=== PATIENT | male | born 1990 | race Caucasian/White ===

== ENCOUNTER 2022-03-02 08:43 | Outpatient (CLI) | payer BC, SELFPAY ==
--- OUTSIDE RECORDS SUMMARY | 2022-03-02 09:05 | XMS_ITS | Clinical Summary ---
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 11/04/2015 Immunizations Name Administration Dates Next Due AMB Influenza, IIV3 (Age >=3 03/27/2008 years)(Flu Clinic Only) DTP 11/03/1997, 08/13/1995, 02/11/1993, 1992, 1992 HIB PRP-OMP (PedvaxHIB) 08/13/1995, 02/11/1993, 1992, 1992 Hepatitis A (Adult) 11/04/2010 Hepatitis B (Peds) 08/13/1995, 07/12/1993, 02/11/1993 Influenza, IIV3 (Age >=3 years) 03/16/2007 Influenza, IIV4 03/23/2018, 06/28/2016 MMR 01/06/2005, 01/06/2005, 08/13/1995 Meningococcal Vaccine (Menveo) 11/04/2010 Oral Polio Vaccine 11/03/1997, 08/13/1995, 1992, 1992 Td (Age >=7 Years) 01/06/2005 Td, Preservative Free (age >= 7 Years) 06/28/2016, 5 Tdap 01/06/2005 Family History Medical History Relation Name Comments Good Health Father Good Health Mother Relation Name Status Comments Father Alive Mother Alive Social History Tobacco Use Types Packs/Day Years Used Date Never Smoker Smokeless Tobacco: Never Used Tobacco Cessation: Counseling Given: Yes Alcohol Use Standard Drinks/Week Comments Yes 3 (1 standard drink = 0.6 oz pure alcoho l) 2-3x/week Alcohol Habits Answer Date Recorded How often do you have a drink containing alcohol? Not asked How many drinks containing alcohol do you have on a typical Not asked day when you are drinking? How often do you have six or more drinks on one occasion? No t asked Comment: 2-3x/week 07/29/2020 Sex Assigned at Date Recorded Not on file Obstetrics History Last Filed Vital Signs Vital Sign Reading Time Taken Comments Blood Pressure 118/70 09/27/2020 1:17 PM CDT Pulse 82 09/27/2020 1:17 PM CDT Temperature 36.9 ??C (98.5 ??F) 01/21/2018 10:28 AM CDT Respiratory Rate 18 07/29/2020 4:16 PM CDT Oxygen Saturation 97% 01/21/2018 10:28 AM CDT Inhaled Oxygen Concentration - - Weight 100.1 kg (220 lb 11.2 oz) 09/27/2020 1:17 PM CDT Height 177.8 cm (5' 10) 09/27/2020 1:17 PM CDT Body Mass Index 31.67 09/27/2020 1:17 PM CDT Plan of Treatment Health Maintenance Due Date Last Done Comments COVID-19 vaccine series (#1) 1990 Hepatitis C screening for age 0106/01/2010 18-79 BMI (ht and wt on same day) for 09/27/2021 09/27/2020, 03/2 09/2020, age 18+ 01/24/2018, Additional history exists Depression screening for age 12+ 10/05/2021 10/05/2020, , 09/06/2020, Additional history exists Influenza for age 9-49 01/05/2022 03/23/2018, 06/28/2016, 03/27/2008, Additional history exists Tetanus booster 06/28/2026 06/28/2016, 01/06/2005, 01/06/2005, Additional history exists Tdap Completed 01/06/2005 Results Not on filefrom Last 3 Months Insurance Payer Benefit Plan / Subscriber ID Effective Dates Phone Addre ss Type Group [employer] [id number] 2019-Present [address] [place] [address] [employer] [id number] 2013-Present [address] [place] [address] Jean Claude Peters Personal/Famil Self 1990 [address]) [place] [id number] Care Teams Designer/Writer Relationship Specialty Start Date End Date Ashish Shultz MD PCP - General 09/19/05 [address] [facility] [place] [id number]
[2022-03-02 12:02] LABS: Chloride* 102 mmol/L (96-114); Potassium* 4.5 mmol/L (3.6-5.1); Sodium* 139 mmol/L (135-149)
[2022-03-02 12:04] LABS: Bilirubin Total* 0.5 mg/dL (0.1-1.5); Carbon Dioxide* 28 mmol/L (20-32); Estimated Glomerular Filt Rate 104 ml/min
[2022-03-02 12:05] LABS: Alanine Aminotransferase* 31 U/L (4-50); Alkaline Phosphatase* 71 U/L (40-150); Aspartate Amino Transferase* 31 U/L (12-35); Blood Urea Nitrogen* 14 mg/dL (5-24); Calcium* 9.7 mg/dL (8.4-10.6); Glucose* 86 mg/dL (60-115); Total Protein* 7.7 g/dL (6.0-8.3)
== END 2022-03-02 08:44 | disposition home or self-care (01) ==
PROVIDERS: PCP Family Medicine; Visit Provider Family Medicine
DX: F41.9 Anxiety disorder, unspecified (principal); R53.83 Other fatigue
CPT/HCPCS: 80053; 84443

== ENCOUNTER 2022-09-01 10:48 | Outpatient (CLI) | payer BC, SELFPAY ==
--- NOTE | 2022-09-01 11:00 | CRLHL7_ITS ---
For Patients: As a result of the Century Cures Act, medical imaging exams and procedure reports are released immediately into your electronic medical record. You may view this report before your referring provider. If you have questions, please contact your health care provider. INDICATION: Sinusitis. Deviated septum. TECHNIQUE: Noncontrast CT images acquired through the paranasal sinuses. COMPARISON: None. FINDINGS: No air-fluid levels to suggest acute sinusitis. Moderate left and mild right circumferential maxillary sinus mucosal thickening. The ethmoid infundibula are opacified. Minimal mucosal thickening in the frontal recesses. The frontal sinuses are otherwise clear. Mild mucosal thickening in the ethmoid air cells. [id number] left and mild right sphenoid sinus mucosal thickening. The sphenoethmoidal recesses are opacified. There is 5 mm rightward nasal septal deviation and 3 mm rightward directed septal spur contacting the right inferior nasal turbinate. No nasal cavity masses. The mastoid air cells are clear. IMPRESSION: 1. Moderate left and mild right circumferential maxillary sinus mucosal thickening. The ethmoid infundibula are opacified. No air-fluid levels to suggest acute sinusitis. 2. Rightward nasal septal deviation with rightward directed septal spur contacting the right inferior nasal turbinate. Please note that all CT scans at this facility use dose modulation, iterative reconstruction, and/or weight-based dosing when appropriate to reduce radiation dose to as low as reasonably achievable. Dictated by Martin Escalona MD @ 09/01/2022 4:06:34 PM (Electronically Signed)
== END 2022-09-01 10:49 | disposition home or self-care (01) ==
LOC: CT 10:48
PROVIDERS: PCP Family Medicine; Visit Provider Otolaryngology
DX: J32.9 Chronic sinusitis, unspecified (principal); J32.0 Chronic maxillary sinusitis; J34.2 Deviated nasal septum
CPT/HCPCS: 70486

== ENCOUNTER 2022-09-06 19:34 | Outpatient (CLI) | payer BC, SELFPAY ==
--- NOTE | 2022-09-12 08:52 | W.PM.SLEEP ---
Sleep Study Details Details Interpreting Provider: Camilo Date of Sleep Study: 09/06/22 Sleep Study Details: STUDY TYPE:? Home ? BMI:? 32.4 ORDERING PROVIDER:? Camilo INDICATION:? Concerns about sleep apnea ? SLEEP SUMMARY:? 447.9 minutes monitored RESPIRATORY SUMMARY:? AHI 17.4, supine 25.2, left lateral 3.1, right lateral 17.9 Low oxygen 82 2.6% of study oxygen less than 90% Snoring 7.4% PERIODIC LIMB MOVEMENTS OF SLEEP:? Not recorded on home study CARDIAC:? Range 50-99, mean 67.6 IMPRESSION:? Moderate obstructive sleep apnea with supine position dependency. RECOMMENDATION: Treatment options include AutoSet CPAP, dental appliance, and/or airway expansion surgery.
== END 2022-09-06 19:35 | disposition home or self-care (01) ==
LOC: SLEEP 19:34
PROVIDERS: PCP Family Medicine; Visit Provider Otolaryngology
DX: G47.33 Obstructive sleep apnea (adult) (pediatric) (principal)
CPT/HCPCS: 95806

== ENCOUNTER 2022-10-27 09:41 | Day surgery (SDC) | payer BC, SELFPAY ==
[2022-10-27] VITALS (20 sets, daily range): BP systolic 112–158; BP diastolic 62–93; PULSE 58–95; RESP 14–19; TEMP 36.1–37.2; O2SAT 95–99; BMI 30.7
--- NOTE | 2022-10-27 10:19 | W.ANESCHARGE ---
Anesthesia Charges Start Date/Time Anesthesia Start Date: 10/27/22 Anesthesia Start Time: 11:33 Stop Date/Time Anesthesia Stop Date: 10/27/22 Anesthesia Stop Time: 12:43
[2022-10-27] MEDS: OXYMETAZOLINE 0.05% NASAL SPRAY 2 SPRAY NOSTRIL-B (10:40)
[2022-10-27] MEDS: LACTATED RINGERS 1000 ML 1,000 ML 100 ML IV (10:48)
[2022-10-27] MEDS: SODIUM CHLORIDE 0.9 % (FLUSH) 10 ML SYRINGE IVF (10:48)
[2022-10-27] MEDS: COCAINE HCL 4 % 4 ML SOLUTION NOSTRIL-B (12:14)
[2022-10-27] MEDS: MUPIROCIN 1 GM PACKET 1 APPLIC TOPICAL (12:14)
[2022-10-27] MEDS: BUPIVACAINE 0.5 %/EPI 1:200K 30 ML INJECTION (12:14)
[2022-10-27] MEDS: AYR SALINE NASAL GEL 1 APPLIC NOSTRIL-B (12:17)
--- NOTE | 2022-10-27 12:47 | W.ANESCHARGE ---
Anesthesia Charges Start Date/Time Anesthesia Start Date: 10/27/22 Anesthesia Start Time: 11:33 Stop Date/Time Anesthesia Stop Date: 10/27/22 Anesthesia Stop Time: 12:43
--- NOTE | 2022-10-27 13:15 | P.ENTPROC_ITS ---
Procedure Note Date of procedure: 10/27/22 Procedure: Preoperative diagnosis nasal obstruction deviated septum turbinate enlargement, chronic bilateral ethmoid and maxillary rhinosinusitis, nasal headache Postoperative diagnosis same Procedure septoplasty submucous partial resection inferior turbinates, endoscopi c bilateral ethmoidectomies complete, endoscopic bilateral maxillary antrostomies with tissue removal. Image guidance was used throughout the procedure as well as endoscopy. Under general endotracheal anesthesia patient was prepped and draped usual fashion the nose injected and decongested. A right hemitransfixion incision was made left anterior and posterior tunnels were created a vertical incision was made through the cartilage and a right posterior tunnel created. The posterior deflected portions of septal bone were resected a large piece was trimmed and returned to the posterior intraseptal space. There was a large left premaxillary wing deformity that was mainly infractured but a portion of the lateral aspect removed with a chisel as it was redundant. The hemitransfixion was closed with 2 4-0 chromic sutures and silastic stents secured with 3-0 nylon. Stab incision was made in the anterior head of the right inferior turbinate a tunnel created with a Hampton dissector. A conservative anterior submucous resection was performed. The Coblation was used for hemostasis. This was repeated on the left side in identical fashion. The image guidance systems registration was checked. Resolution appeared to be excellent. The inferior 4th of the right uncinate process was taken down with a micro backbiter exposing natural ostium to maxillary sinus. This was occluded by polyp tissue which was removed with an up-biting ethmoid forceps and in the antrostomy enlarged in a posterior-inferior direction to and 9 mm antrostomy. The ethmoid bulla was then taken down all a mock large to moderate amount of polypoid tissue was removed. Dissection was carried back into the posterior ethmoid cells. The lower quarter of the left uncinate process was then removed with a micro backbiter exposing natural ostium to maxillary sinus and this was again enlarged an inferior posterior direction to a 9 mm antrostomy. Polypoid tissue was removed from the opening into the sinus as well as the floor of the sinus. The ethmoid bulla was taken down and dissection carried out in an anterior to posterior direction. Prior to this the middle turbinate becky bullosa was inc ised along its inferior aspect in crushed with the Dameon forceps. Moderate to small amount of polypoid tissue was removed from the ethmoid sinus. A piece of Merocel was trimmed lengthwise and then placed beneath the middle turbinate on each side. The patient procedure well was taken to recovery in satisfactory condition. Blood loss was less than 50 mL. Surgeon: Jordi Miles MD
[2022-10-27] MEDS: OXYCODONE 5 MG TABLET PO ×3 (14:03→21:58)
[2022-10-27] MEDS: ACETAMINOPHEN 325 MG TABLET PO ×3 (14:03→21:58)
[2022-10-27] MEDS: IBUPROFEN 200 MG TABLET PO ×3 (14:03→21:57)
--- NOTE | 2022-10-27 19:13 | PC.NURSE ---
End of shift: patient up to floor at 1315, accompanied by spouse Sonam. Patient is alert and oriented x4. Rated pain 4/10 PRN meds administered x2 see eMAR. Tolerating a reg. diet. VSS. Dressing C/D/I changed x2. Denies any N/V and SOB. Bilateral SCD's.
[2022-10-28] MEDS: ACETAMINOPHEN 325 MG TABLET PO ×2 (01:59→06:38)
[2022-10-28] MEDS: IBUPROFEN 200 MG TABLET PO ×2 (01:59→06:38)
[2022-10-28] MEDS: OXYCODONE 5 MG TABLET PO ×2 (02:00→06:39)
[2022-10-28 02:02] VITALS: BP 143/82; PULSE 93; RESP 16; TEMP 36.5; O2SAT 95
--- NOTE | 2022-10-28 05:07 | PC.NURSE ---
[id number]: Patient cooperative with cares. Independent in room. Rates pain 3-4/10 with PRN medications administered for relief. Dressing change x3 with minimal bloody drainage. Denies N/V. Eating and voiding.
[2022-10-28 07:00] VITALS: BP 144/81; PULSE 67; RESP 16; TEMP 36.5; O2SAT 97
--- NOTE | 2022-10-28 12:22 | PC.NURSE ---
Discharge: accompanied by spouse Sonam. Patient is alert and oriented x4. Rated pain 2/10. Tolerating a reg. diet. VSS. Dressing C/D/I changed x2. Denies any N/V and SOB. Bilateral SCD's. Discharged today at 1103. Patient verbalized discharge instructions and teaching. sheet signed.
== END 2022-10-28 11:03 | disposition home or self-care (01) ==
LOC: OR 10:32 → MEDSURG 18:12
PROVIDERS: PCP Family Medicine; Visit Provider Otolaryngology
PROC: (CPT 31231; principal; 2022-10-27 11:00)
DX: J34.2 Deviated nasal septum (principal); J34.3 Hypertrophy of nasal turbinates; J32.2 Chronic ethmoidal sinusitis; J32.0 Chronic maxillary sinusitis; R51.9 Headache, unspecified
CPT/HCPCS: 30520; 30140; 31255; 31267; 00160; 00170; 88305; A9270; J0330; J1100; J2250; J2405; J2704; J3010; J3490; J7120

== ENCOUNTER 2024-05-23 08:20 | Outpatient (CLI) | payer BC, SELFPAY | END 2024-05-23 08:21 | disposition home or self-care (01) | LOC: NFLDREF 05-24 17:44 | PROVIDERS: PCP Family Medicine; Referring Provider Family Medicine; Visit Provider Family Medicine | DX: R53.83 Other fatigue (principal); E78.5 Hyperlipidemia, unspecified; Z13.9 Encounter for screening, unspecified | CPT/HCPCS: 80053; 80061; 84443 ==